=== PATIENT | female | born 1950 | race Caucasian/White ===

== ENCOUNTER 2016-11-20 17:32 | Inpatient (IN) | payer MEDICARE, BC ==
[~2016-11-20 17:32] MED LIST: ANTIBIOTIC PO; ATIVAN0.5 MG PO; B-1100 MG PO; COLACE100 MG PO; CYCLOBENZAPRINE5 M1 PO; EX-LAX15 M1 PO; FIBER THERAPY PO; FLEXERIL5 M1 PO; GABAPENTIN100 MG PO; GABAPENTIN300 M1 PO; IBUPROFEN200 MG PO; KLOR-CON M1010 MEQ PO; MAALOX SUSPENSI30 ML PO; MIRALAX17 G1 PO; MIRALAX17 GM PO; MS CONTIN30 MG PO; MS CONTIN60 MG PO; NICODERM21 MG/PATC TD; NORCO 5-325 TA1 EACH PO; OXYCODONE/APAP PO; PERCOCET 5-3251 EACH PO; REGLAN10 M1 PO; STOOL SOFTENER1 EAC4 PO; TOPAMAX25 M1 PO; TOPAMAX50 M3 PO; TYLENOL EXTRA500 M1 PO; TYLENOL325 MG PO; TYLENOL500 MG PO; ZOFRAN ODT4 MG/UDTAB PO; ZOLOFT50 M1 PO; ZOLOFT50 MG PO; [UNRECOGNIZED DRUG - OTHER] GT; [UNRECOGNIZED DRUG - OTHER] PO
[2016-11-20] MEDS ORDERED: NEURONTIN300 M1 PO (18:15)
[2016-11-20 18:19] LABS: BASO % 0.1 % (0-2); HCT-HEMATOCRIT 36.2 % (34.0-49.0); HGB-HEMOGLOBIN 12.3 gm/dl (12.0-15.5); IMMATURE GRANULOCYTES ABSOLUTE 0.06 tho/cmm (0-0.03); IMMATURE GRANULOCYTES PERCENT 0.4 % (0-0.3); LYMPH % 4.4 % (20-45); LYMPH ABSOLUTE COUNT 0.7 tho/cmm (0.8-4.5); MCH (MEAN CORPUSCULAR HGB) 32.5 pg (28.0-32.0); MCV (MEAN CELL VOLUME) 95.5 fl (82.0-96.0); MEAN PLATELET VOLUME 8.9 cmc (9.4-12.4); MONO % 6.1 % (0-12); NEUTROPHIL ABSOLUTE COUNT 13.9 tho/cmm (1.6-8.0); NEUTROPHIL-AUTOMATED 13.9 tho/cmm (1.6-8.0); PLATELET COUNT 189 tho/cmm (150-450); RED BLOOD COUNT 3.79 mil/cmm (4.00-5.20); RED CELL DISTRIBUTION WIDTH 13.2 % (12.4-16.4); WHITE BLOOD COUNT 15.6 tho/cmm (4.0-10.0)
[2016-11-20 18:42] LABS: URINE BILIRUBIN NEGATIVE (NEG); URINE BLOOD LARGE (NEG); URINE GLUCOSE (UA) NEGATIVE (NEG); URINE KETONE MODERATE (NEG); URINE LEUKOCYTE ESTERASE NEGATIVE (NEG); URINE NITRITE NEGATIVE (NEG); URINE PROTEIN MODERATE (NEG)
[2016-11-20 18:44] LABS: ALBUMIN 3.7 g/dl (3.5-5.0); ALKALINE PHOSPHATASE 89 U/L (33-138); ALT/SGPT 177 U/L (12-78); BILIRUBIN,TOTAL 0.9 mg/dl (0-1.5); BLOOD UREA NITROGEN 26 mg/dl (6-24); CALCIUM 8.6 mg/dl (8.5-10.5); CARBON DIOXIDE-VENOUS 19 mmol/L (22-32); CHLORIDE 110 mmol/l (96-110); CREATININE 0.94 mg/dl (0.50-1.10); GLUCOSE 93 mg/dL (70-110); SODIUM 143 mmol/L (135-145); eGFR VALUE FOR BLACK 72 mL/Min
[2016-11-20 18:45] LABS: URINE APPEARANCE HAZY; URINE COLOR YELLOW
[2016-11-20 18:49] LABS: URINE EPITHELIAL CELLS 0-3 /[HPF] (0-10); URINE WBC 0 /[HPF] (0-5)
[2016-11-20 18:49] LABS: ANION GAP 18 mmol/L (0-20); AST/SGOT 572 U/L (10-40); POTASSIUM 4.1 mmol/L (3.7-5.1)
[2016-11-20 20:11] LABS: CREATINE PHOSPHOKINASE (CPK) 19226 U/L (21-215)
[2016-11-21 05:29] LABS: BASO % 0.2 % (0-2); EOS % 0.3 % (0-7); HCT-HEMATOCRIT 29.4 % (34.0-49.0); HGB-HEMOGLOBIN 9.9 gm/dl (12.0-15.5); IMMATURE GRANULOCYTES ABSOLUTE 0.03 tho/cmm (0-0.03); IMMATURE GRANULOCYTES PERCENT 0.3 % (0-0.3); LYMPH % 9.2 % (20-45); LYMPH ABSOLUTE COUNT 0.9 tho/cmm (0.8-4.5); MCH (MEAN CORPUSCULAR HGB) 32.2 pg (28.0-32.0); MCHC MEAN CORPUSCULAR HGB CONC 33.7 % (32.0-36.0); MCV (MEAN CELL VOLUME) 95.8 fl (82.0-96.0); MEAN PLATELET VOLUME 8.8 cmc (9.4-12.4); MONO % 7.2 % (0-12); MONOCYTE ABSOLUTE COUNT 0.7 tho/cmm (0.0-1.2); NEUTROPHIL ABSOLUTE COUNT 8.3 tho/cmm (1.6-8.0); NEUTROPHIL-AUTOMATED 8.3 tho/cmm (1.6-8.0); NEUTROPHILS % 82.8 % (40-80); PLATELET COUNT 170 tho/cmm (150-450); RED BLOOD COUNT 3.07 mil/cmm (4.00-5.20); RED CELL DISTRIBUTION WIDTH 13.3 % (12.4-16.4); WHITE BLOOD COUNT 10.1 tho/cmm (4.0-10.0)
[2016-11-21 05:43] LABS: ALBUMIN 2.8 g/dl (3.5-5.0); ALKALINE PHOSPHATASE 70 U/L (33-138); ALT/SGPT 135 U/L (12-78); ANION GAP 14 mmol/L (0-20); AST/SGOT 398 U/L (10-40); BILIRUBIN,TOTAL 0.7 mg/dl (0-1.5); BLOOD UREA NITROGEN 17 mg/dl (6-24); CALCIUM 7.8 mg/dl (8.5-10.5); CARBON DIOXIDE-VENOUS 22 mmol/L (22-32); CHLORIDE 110 mmol/l (96-110); CREATININE 0.54 mg/dl (0.50-1.10); GLUCOSE 85 mg/dL (70-110); POTASSIUM 3.3 mmol/L (3.7-5.1); SODIUM 143 mmol/L (135-145); eGFR VALUE FOR BLACK >90 mL/Min
[2016-11-21 06:07] LABS: CREATINE PHOSPHOKINASE (CPK) 10157 U/L (21-215)
[2016-11-21 14:03] LABS: MAGNESIUM 1.8 mg/dl (1.8-2.6); PHOSPHOROUS 1.2 mg/dl (2.5-4.9)
--- NOTE | 2016-11-21 20:15 | NUR ---
[facility] NOTES: PT. IN BED, STATES FEELS A LITTLE BETTER AND MAYBE A LITTLE STRONGER TODAY. HAS BEEN TOLERATING LIQUIDS TO DRINK. C/O OF PAIN 6/10 OF HER BACK AND LOWER. REFUSES PAIN MEDS WHEN OFFERED AT THIS TIME, ALTHOUGH WOULD LIKE TO TRY HEATING PAD. RN AND ELIA WELCH. DENIES FURTHER QUESTIONS OR NEEDS AT THIS TIME. EDUCATION REVIEWED REGARDING FALL PREVENTION. INSTRUCTED TO CALL FOR FURTHER NEEDS. STATES VERBAL AGREEMENT.
[2016-11-22 01:16] LABS: BASO % 0.3 % (0-2); EOS % 1.6 % (0-7); EOSINOPHIL ABSOLUTE COUNT 0.1 tho/cmm (0.0-0.7); HCT-HEMATOCRIT 29.9 % (34.0-49.0); HGB-HEMOGLOBIN 10.1 gm/dl (12.0-15.5); IMMATURE GRANULOCYTES ABSOLUTE 0.02 tho/cmm (0-0.03); IMMATURE GRANULOCYTES PERCENT 0.3 % (0-0.3); LYMPH ABSOLUTE COUNT 0.9 tho/cmm (0.8-4.5); MCH (MEAN CORPUSCULAR HGB) 32.5 pg (28.0-32.0); MCHC MEAN CORPUSCULAR HGB CONC 33.8 % (32.0-36.0); MCV (MEAN CELL VOLUME) 96.1 fl (82.0-96.0); MEAN PLATELET VOLUME 8.8 cmc (9.4-12.4); MONO % 6.9 % (0-12); MONOCYTE ABSOLUTE COUNT 0.5 tho/cmm (0.0-1.2); NEUTROPHIL ABSOLUTE COUNT 5.8 tho/cmm (1.6-8.0); NEUTROPHIL-AUTOMATED 5.8 tho/cmm (1.6-8.0); NEUTROPHILS % 78.9 % (40-80); PLATELET COUNT 170 tho/cmm (150-450); RED BLOOD COUNT 3.11 mil/cmm (4.00-5.20); RED CELL DISTRIBUTION WIDTH 13.4 % (12.4-16.4); WHITE BLOOD COUNT 7.3 tho/cmm (4.0-10.0)
[2016-11-22 01:32] LABS: ALB/GLOB RATIO 0.9 (0.8-2.0); ALBUMIN 2.7 g/dl (3.5-5.0); ALKALINE PHOSPHATASE 65 U/L (33-138); ALT/SGPT 134 U/L (12-78); ANION GAP 12 mmol/L (0-20); AST/SGOT 277 U/L (10-40); BILIRUBIN,TOTAL 0.6 mg/dl (0-1.5); BLOOD UREA NITROGEN 10 mg/dl (6-24); CALCIUM 7.6 mg/dl (8.5-10.5); CARBON DIOXIDE-VENOUS 24 mmol/L (22-32); CHLORIDE 105 mmol/l (96-110); CREATININE 0.64 mg/dl (0.50-1.10); GLUCOSE 93 mg/dL (70-110); PHOSPHOROUS 1.6 mg/dl (2.5-4.9); POTASSIUM 3.6 mmol/L (3.7-5.1); SODIUM 137 mmol/L (135-145); eGFR VALUE FOR BLACK >90 mL/Min
[2016-11-22 01:44] LABS: CREATINE PHOSPHOKINASE (CPK) 5636 U/L (21-215)
[2016-11-23 06:05] LABS: CHLORIDE 113 mmol/l (96-110); POTASSIUM 3.8 mmol/L (3.7-5.1); SODIUM 143 mmol/L (135-145)
[2016-11-23 06:33] LABS: ALBUMIN 2.6 g/dl (3.5-5.0); ALKALINE PHOSPHATASE 64 U/L (33-138); ALT/SGPT 110 U/L (12-78); ANION GAP 13 mmol/L (0-20); AST/SGOT 152 U/L (10-40); BILIRUBIN,TOTAL 0.3 mg/dl (0-1.5); BLOOD UREA NITROGEN 6 mg/dl (6-24); CALCIUM 7.7 mg/dl (8.5-10.5); CARBON DIOXIDE-VENOUS 21 mmol/L (22-32); CHOLESTEROL 194 mg/dl (120-200); CREATININE 0.49 mg/dl (0.50-1.10); GLUCOSE 93 mg/dL (70-110); HDL CHOLESTEROL 36 mg/dl (40-60); LDL CHOLESTEROL 135 mg/dl (0-99); MAGNESIUM 1.8 mg/dl (1.8-2.6); TRIGLYCERIDES 117 mg/dl (<149); VLDL 23 mg/dl (0-30); eGFR VALUE FOR BLACK >90 mL/Min
[2016-11-23 06:37] LABS: CREATINE PHOSPHOKINASE (CPK) 2418 U/L (21-215)
--- NOTE | 2016-11-23 21:23 | NUR ---
VN/LEADER ROUNDING-PATIENT LAYING IN BED COMFORTABLY -HAVING SOME PAIN RIGHT NOW SHE JUST GOT THRU WALKING FURTHER THAN SHE USUALLY DOES BUT THE PAIN IS TOLERABLE. WE DISCUSSD HER GETTING THE HEART CATH TOMORROW AND SHE HAS NO QUESTIONS AND I REMINDED HER SHE WILL NOT HAVE ANYTHING TO EAT OR DRINK AFTR MIDNIGHT.I ASKED ABOUT CALL LIGHT ANSWERING AND WHAT WE CAN DO FOR EXCELLENCE AND SHE SAID WE ARE DOING GREAT AND THE LIGHTS ARE ANSWERED QUICKLY.
--- NOTE | 2016-11-24 14:10 | NUR ---
virtual care note: visited w/ pt at this time. she is in very good spirits. has had her heart catheterization-recovered well from that procedure. states she plans to return home tomorrow with home health and home P.T. D/W the pt the discharge process, as well as that social work will be visiting with her tomorrow to help finalize discharge plans. has been up for walks-in fact she just got back from another walk just prior to our conversation. doing well, denies pain. no further needs or questions. will continue to monitor. electronic chart reviewed.
[2016-11-25 06:36] LABS: EOS % 4.1 % (0-7); EOSINOPHIL ABSOLUTE COUNT 0.2 tho/cmm (0.0-0.7); HCT-HEMATOCRIT 28.1 % (34.0-49.0); HGB-HEMOGLOBIN 9.2 gm/dl (12.0-15.5); IMMATURE GRANULOCYTES ABSOLUTE 0.02 tho/cmm (0-0.03); IMMATURE GRANULOCYTES PERCENT 0.5 % (0-0.3); LYMPH % 19.4 % (20-45); LYMPH ABSOLUTE COUNT 0.8 tho/cmm (0.8-4.5); MCH (MEAN CORPUSCULAR HGB) 31.8 pg (28.0-32.0); MCHC MEAN CORPUSCULAR HGB CONC 32.7 % (32.0-36.0); MCV (MEAN CELL VOLUME) 97.2 fl (82.0-96.0); MEAN PLATELET VOLUME 8.7 cmc (9.4-12.4); MONO % 12.1 % (0-12); MONOCYTE ABSOLUTE COUNT 0.5 tho/cmm (0.0-1.2); NEUTROPHIL ABSOLUTE COUNT 2.4 tho/cmm (1.6-8.0); NEUTROPHIL-AUTOMATED 2.4 tho/cmm (1.6-8.0); NEUTROPHILS % 62.9 % (40-80); PLATELET COUNT 166 tho/cmm (150-450); RED BLOOD COUNT 2.89 mil/cmm (4.00-5.20); RED CELL DISTRIBUTION WIDTH 13.7 % (12.4-16.4); WHITE BLOOD COUNT 3.9 tho/cmm (4.0-10.0)
[2016-11-25 06:46] LABS: ANION GAP 12 mmol/L (0-20); BLOOD UREA NITROGEN 6 mg/dl (6-24); CARBON DIOXIDE-VENOUS 22 mmol/L (22-32); CHLORIDE 112 mmol/l (96-110); CREATINE PHOSPHOKINASE (CPK) 801 U/L (21-215); CREATININE 0.48 mg/dl (0.50-1.10); GLUCOSE 94 mg/dL (70-110); POTASSIUM 3.4 mmol/L (3.7-5.1); SODIUM 143 mmol/L (135-145); eGFR VALUE FOR BLACK >90 mL/Min
--- NOTE | 2016-11-25 13:10 | NUR ---
VIRTUAL CARE NOTE: PT RESTING ON BED STATES DOING PRETTY GOOD. [employer] TECHNICIAN SEEN TODAY, DISCHARGE PLAN DISSCUSSED PT WILL HAVE HHC AT HOME. PT DENIES ANY NEEDS OR CONCERNS AT THIS TIME.
[2016-11-26 05:09] LABS: BASO % 0.7 % (0-2); EOS % 3.9 % (0-7); EOSINOPHIL ABSOLUTE COUNT 0.2 tho/cmm (0.0-0.7); HCT-HEMATOCRIT 28.1 % (34.0-49.0); HGB-HEMOGLOBIN 9.2 gm/dl (12.0-15.5); IMMATURE GRANULOCYTES ABSOLUTE 0.03 tho/cmm (0-0.03); IMMATURE GRANULOCYTES PERCENT 0.7 % (0-0.3); LYMPH % 20.5 % (20-45); LYMPH ABSOLUTE COUNT 0.9 tho/cmm (0.8-4.5); MCH (MEAN CORPUSCULAR HGB) 32.1 pg (28.0-32.0); MCHC MEAN CORPUSCULAR HGB CONC 32.7 % (32.0-36.0); MCV (MEAN CELL VOLUME) 97.9 fl (82.0-96.0); MEAN PLATELET VOLUME 8.6 cmc (9.4-12.4); MONO % 11.6 % (0-12); MONOCYTE ABSOLUTE COUNT 0.5 tho/cmm (0.0-1.2); NEUTROPHIL ABSOLUTE COUNT 2.9 tho/cmm (1.6-8.0); NEUTROPHIL-AUTOMATED 2.9 tho/cmm (1.6-8.0); NEUTROPHILS % 62.6 % (40-80); PLATELET COUNT 178 tho/cmm (150-450); RED BLOOD COUNT 2.87 mil/cmm (4.00-5.20); RED CELL DISTRIBUTION WIDTH 13.8 % (12.4-16.4); WHITE BLOOD COUNT 4.6 tho/cmm (4.0-10.0)
[2016-11-26 05:20] LABS: ANION GAP 12 mmol/L (0-20); BLOOD UREA NITROGEN 7 mg/dl (6-24); CARBON DIOXIDE-VENOUS 24 mmol/L (22-32); CHLORIDE 111 mmol/l (96-110); CREATINE PHOSPHOKINASE (CPK) 503 U/L (21-215); CREATININE 0.54 mg/dl (0.50-1.10); GLUCOSE 91 mg/dL (70-110); MAGNESIUM 1.9 mg/dl (1.8-2.6); PHOSPHOROUS 3.5 mg/dl (2.5-4.9); POTASSIUM 3.7 mmol/L (3.7-5.1); SODIUM 143 mmol/L (135-145); eGFR VALUE FOR BLACK >90 mL/Min
[2016-11-26] MEDS ORDERED: LIPITOR40 M1 PO (10:58)
[2016-11-26] MEDS ORDERED: METOPROLOL TART25 M1 PO (11:01)
[2016-11-26] MEDS ORDERED: ASPIRIN EC81 MG PO (11:02)
== END 2016-11-26 15:50 | disposition home health service (06) | DRG 557 ==
LOC: EDMED 17:32 → EMR2 21:08 → 5WD 21:46
PROVIDERS: Emergency Medicine; Internal Medicine; ADMIT Hospitalist
PROC: 4A023N7 Measurement of Cardiac Sampling and Pressure, Left Heart, Percutaneous Approach (ICD-10-PCS; principal; 2016-11-24)
PROC: B215YZZ Fluoroscopy of Left Heart using Other Contrast (ICD-10-PCS; 2016-11-24)
PROC: B211YZZ Fluoroscopy of Multiple Coronary Arteries using Other Contrast (ICD-10-PCS; 2016-11-24)
DX: M62.82 Rhabdomyolysis (principal); I21.4 Non-ST elevation (NSTEMI) myocardial infarction; I25.10 Atherosclerotic heart disease of native coronary artery without angina pectoris; D64.9 Anemia, unspecified; E83.51 Hypocalcemia; Z87.891 Personal history of nicotine dependence
CPT/HCPCS: A9500; C1894; C8929; J1644; J1650; J2250; J2270; J2405; J2785; J3010; J7030; P9612; Q9967